=== PATIENT | female | born 1945 | race Two or more races ===

== ENCOUNTER 2023-02-01 23:49 | Emergency (ER) | payer MEDICARE, OTHER ==
[~2023-02-01] VITALS: Ht 154.9 cm; Wt 71.7 kg
--- NOTE | 2023-02-02 00:15 | NUR ---
BIB 889 FROM HOME FOR C/O LOWER BACK AND L FEMUR PAIN S/P FALL 2 DAYS AGO. +BRUISES ON POSTERIOR L THIGH. TESTED + FOR [employer] TODAY
[2023-02-02] MEDS ORDERED: CYCLOBENZAPRINE 10 MG TABLET ONE (00:46)
[2023-02-02] MEDS ORDERED: KETOROLAC TROMETHAMINE INJ 30 MG/ML VIAL ONE (00:46)
[2023-02-02] MEDS ORDERED: CYCLOBENZAPRINE 10 MG TABLET PO ONE (01:00)
[2023-02-02] MEDS ORDERED: KETOROLAC TROMETHAMINE INJ 60 MG/2 ML VIAL IM ONE (01:00)
--- NOTE | 2023-02-02 01:14 | NUR ---
LEFT FOR CT
[2023-02-02] MEDS ORDERED: KETO10TA2 PO (03:07)
[2023-02-02] MEDS ORDERED: OXYC-131 PO (03:07)
[2023-02-02] MEDS ORDERED: CYCL5TAB PO (03:07)
--- NOTE | 2023-02-02 03:38 | NUR ---
Patient discharged to home in stable condition. Written and verbal after care instructions given. Patient verbalizes understanding of instruction.
[2023-02-02 03:40] VITALS: BP 118/68
[2023-02-03] MEDS ORDERED: OXYC-128 PO (15:35)
== END 2023-02-02 03:40 | disposition home or self-care (01) ==
LOC: EDBD 23:54 → ER 23:54
DX: M25.552 Pain in left hip (principal); M54.50 Low back pain, unspecified; I10 Essential (primary) hypertension; E11.9 Type 2 diabetes mellitus without complications; Z60.2 Problems related to living alone; Z88.0 Allergy status to penicillin; W19.XXXA Unspecified fall, initial encounter; Y93.89 Activity, other specified; Y92.89 Other specified places as the place of occurrence of the external cause; Y99.8 Other external cause status
CPT/HCPCS: 99285; 72131; 96372; 73700; J1885

== ENCOUNTER 2023-05-12 04:48 | Emergency (ER) | payer MEDICARE, OTHER ==
[~2023-05-12] VITALS: Ht 154.9 cm; Wt 72.6 kg
[~2023-05-12 04:48] MED LIST: CYCL5TAB PO; KETO10TA2 PO; OXYC-128 PO
[2023-05-12 05:05] VITALS: TEMP 99.5
--- NOTE | 2023-05-12 05:09 | NUR ---
Ruben AOx4, able to express concerns. Patient states she has oral and sinus pain since 05/11/2023. Daughter at bedside, per pts request. Discussed plan of care, pt verbalized agreement. All safety precautions taken.
[2023-05-12] MEDS ORDERED: CLINDAMYCIN HCL 150 MG CAPSULE PO ONE (05:30)
[2023-05-12] MEDS ORDERED: HYDROCODONE/APAP 5/325MG TABLET PO ONE (05:30)
[2023-05-12] MEDS ORDERED: HYDR-3980 PO (05:30)
[2023-05-12] MEDS ORDERED: CLIN300C12 PO (05:30)
[2023-05-12] MEDS ORDERED: CLINDAMYCIN HCL 150 MG CAPSULE ONE (05:31)
[2023-05-12] MEDS ORDERED: HYDROCODONE/APAP 5/325MG TABLET ONE (05:31)
[2023-05-12 05:40] VITALS: BP 146/84
== END 2023-05-12 05:40 | disposition home or self-care (01) ==
LOC: ER 04:52
DX: K13.79 Other lesions of oral mucosa (principal); R22.0 Localized swelling, mass and lump, head; I10 Essential (primary) hypertension; E11.9 Type 2 diabetes mellitus without complications; Z60.2 Problems related to living alone; Z95.1 Presence of aortocoronary bypass graft; Z79.899 Other long term (current) drug therapy; Z88.0 Allergy status to penicillin

== ENCOUNTER 2024-04-24 00:47 | Emergency (ER) | payer MEDICARE, OTHER ==
[~2024-04-24] VITALS: Ht 157.5 cm; Wt 77.1 kg
[~2024-04-24 00:47] MED LIST changes: +CLIN300C12 PO; +HYDR-3980 PO
[2024-04-24] MEDS ORDERED: KETOROLAC TROMETHAMINE 15 MG/ML VIAL ONE (01:58)
[2024-04-24] MEDS: KETOROLAC TROMETHAMINE 15 MG/ML VIAL IM ONE (02:00)
[2024-04-24] MEDS ORDERED: CLONIDINE HCL 0.1 MG TABLET ONE (02:27)
[2024-04-24] MEDS: CLONIDINE HCL 0.1 MG TABLET PO ONE ×2 (02:30→03:48)
[2024-04-24] MEDS ORDERED: GABA-532 PO (05:17)
[2024-04-24 05:28] VITALS: BP 125/58; TEMP 98.2; O2SAT 97
== END 2024-04-24 05:29 | disposition home or self-care (01) ==
LOC: ER 00:49
DX: M54.50 Low back pain, unspecified (principal); M79.605 Pain in left leg; M79.604 Pain in right leg; I10 Essential (primary) hypertension; E11.9 Type 2 diabetes mellitus without complications; Z88.0 Allergy status to penicillin; Z60.2 Problems related to living alone
CPT/HCPCS: 99285; 93970; 72131; 96372; J1885

== ENCOUNTER 2024-11-21 10:27 | Emergency (ER) | payer MEDICARE, OTHER ==
[~2024-11-21] VITALS: Ht 152.4 cm; Wt 66.2 kg
[~2024-11-21 10:27] MED LIST changes: +GABA-532 PO
[2024-11-21] MEDS ORDERED: ASPIRIN 325 MG TABLET ONE (10:59)
[2024-11-21 11:11] LABS: BASOPHILS # (AUTO) 0.1 K/uL (0.0-0.2); EOSINOPHILS # (AUTO) 0.1 K/uL (0.0-0.7); EOSINOPHILS % (AUTO) 1.1 % (0.0-6.0); HEMATOCRIT 35 % (33-45); HEMOGLOBIN 11.5 g/dL (11.5-14.8); LYMPHOCYTES # (AUTO) 2.1 K/uL (0.8-4.8); LYMPHOCYTES % (AUTO) 23.4 % (20.0-44.0); MEAN CORPUSCULAR HEMOGLOBIN 30 PG (26.0-33.0); MEAN CORPUSCULAR HGB CONC 33 g/dl (31.0-36.0); MEAN CORPUSCULAR VOLUME 91 fL (82-100); MONOCYTES # (AUTO) 0.5 K/uL (0.1-1.30); MONOCYTES % (AUTO) 5.9 % (2.0-12.0); NEUTROPHILS # (AUTO) 6.3 K/uL (1.8-8.9); NEUTROPHILS % (AUTO) 68.6 % (43.0-81.0); PLATELET COUNT (AUTO) 257 K/uL (150-450); RED BLOOD CELL COUNT(AUTO) 3.84 MIL/uL (4.0-5.2); RED CELL DISTRIBUTION WIDTH 13.9 % (11.5-15.0); WHITE BLOOD COUNT (AUTO) 9.1 K/uL (4.3-11.0)
[2024-11-21] MEDS: ASPIRIN 325 MG TABLET PO ONE (11:18)
[2024-11-21 11:44] LABS: CALCIUM, SERUM 8.7 mg/dL (8.5-10.1); CARBON DIOXIDE 24 mmol/L (21-32); CHLORIDE 107 mmol/L (98-107); GLUCOSE 115 mg/dL (74-106); POTASSIUM 4.9 mmol/L (3.5-5.1); SODIUM SERUM 140 mmol/L (136-145); UREA NITROGEN, BLOOD 13 mg/dL (7-18)
[2024-11-21 12:07] LABS: ALANINE AMINOTRANSFERASE 65 U/L (12-78); ALBUMIN 3.4 g/dL (3.4-5.0); ALKALINE PHOSPHATASE 83 U/L (46-116); ASPARTATE AMINOTRANSFERASE 44 U/L (15-37); BILIRUBIN,DIRECT 0.1 mg/dL (0.0-0.2); BILIRUBIN,TOTAL 0.3 mg/dL (0.2-1.0); NT-PRO BNP 1604 pg/mL (0-125); TOTAL PROTEIN, SERUM 7.3 g/dL (6.4-8.2)
[2024-11-21 13:31] VITALS: BP 148/67; TEMP 98.2; O2SAT 100
== END 2024-11-21 13:35 | disposition left against medical advice (07) ==
LOC: ER 10:30
DX: R07.9 Chest pain, unspecified (principal); I10 Essential (primary) hypertension; I25.10 Atherosclerotic heart disease of native coronary artery without angina pectoris; I49.1 Atrial premature depolarization; Z86.718 Personal history of other venous thrombosis and embolism; Z88.0 Allergy status to penicillin; Z95.5 Presence of coronary angioplasty implant and graft
CPT/HCPCS: 36415; 71045-TC; 80048-TC; 80076-TC; 83880; 84484-TC; 85025-TC

== ENCOUNTER 2025-03-10 14:17 | Inpatient (IN) | payer MEDICARE, OTHER ==
[~2025-03-10] VITALS: Ht 152.4 cm; Wt 66.7 kg
[2025-03-10 14:27] VITALS: TEMP 98.1
[2025-03-10 14:53] LABS: BASOPHILS # (AUTO) 0.1 K/uL (0.0-0.2); BASOPHILS % (AUTO) 0.8 % (0.0-2.0); EOSINOPHILS # (AUTO) 0.2 K/uL (0.0-0.7); EOSINOPHILS % (AUTO) 1.6 % (0.0-6.0); HEMATOCRIT 37 % (33-45); HEMOGLOBIN 12.3 g/dL (11.5-14.8); LYMPHOCYTES # (AUTO) 2.6 K/uL (0.8-4.8); LYMPHOCYTES % (AUTO) 27.1 % (20.0-44.0); MEAN CORPUSCULAR HEMOGLOBIN 30 PG (26.0-33.0); MEAN CORPUSCULAR HGB CONC 34 g/dl (31.0-36.0); MEAN CORPUSCULAR VOLUME 89 fL (82-100); MONOCYTES # (AUTO) 0.7 K/uL (0.1-1.30); MONOCYTES % (AUTO) 6.8 % (2.0-12.0); NEUTROPHILS # (AUTO) 6.1 K/uL (1.8-8.9); NEUTROPHILS % (AUTO) 63.7 % (43.0-81.0); PLATELET COUNT (AUTO) 256 K/uL (150-450); RED BLOOD CELL COUNT(AUTO) 4.14 MIL/uL (4.0-5.2); RED CELL DISTRIBUTION WIDTH 14.1 % (11.5-15.0); WHITE BLOOD COUNT (AUTO) 9.6 K/uL (4.3-11.0)
[2025-03-10 15:06] LABS: CALCIUM, SERUM 9.5 mg/dL (8.5-10.1); CARBON DIOXIDE 25 mmol/L (21-32); CHLORIDE 104 mmol/L (98-107); GLUCOSE 98 mg/dL (74-106); POTASSIUM 5.1 mmol/L (3.5-5.1); SODIUM SERUM 140 mmol/L (136-145); UREA NITROGEN, BLOOD 16 mg/dL (7-18)
[2025-03-10] MEDS ORDERED: ACETAMINOPHEN ES 500 MG TABLET ONE (15:12)
[2025-03-10] MEDS: ACETAMINOPHEN ES 500 MG TABLET PO ONE (15:14)
[2025-03-10 15:17] LABS: ALANINE AMINOTRANSFERASE 18 U/L (12-78); ALBUMIN 3.8 g/dL (3.4-5.0); ALKALINE PHOSPHATASE 87 U/L (46-116); ASPARTATE AMINOTRANSFERASE 20 U/L (15-37); BILIRUBIN,DIRECT 0.1 mg/dL (0.0-0.2); BILIRUBIN,TOTAL 0.5 mg/dL (0.2-1.0); NT-PRO BNP 743 pg/mL (0-125); TOTAL PROTEIN, SERUM 7.3 g/dL (6.4-8.2)
[2025-03-10] MEDS ORDERED: CARV25TA2 PO (16:26)
[2025-03-10] MEDS ORDERED: ASPI-1420 PO (16:26)
[2025-03-10] MEDS ORDERED: BENA20TA9 PO (16:26)
[2025-03-10] MEDS ORDERED: ESOM40CA PO (16:26)
[2025-03-10] MEDS ORDERED: LORA10TA7 PO (16:26)
[2025-03-10] MEDS ORDERED: GABA-532 PO (16:26)
[2025-03-10] MEDS ORDERED: LINA1TAB7 PO (16:26)
[2025-03-10] MEDS ORDERED: DICL100G26 TP (16:26)
[2025-03-10] MEDS ORDERED: TICA60TA PO (16:26)
[2025-03-10] MEDS ORDERED: ATOR80TA PO (16:26)
[2025-03-10] MEDS ORDERED: TRAM50TA2 PO (16:26)
[2025-03-10] MEDS ORDERED: CYCL30DR EACHEYE (16:26)
[2025-03-10] MEDS ORDERED: MORPHINE SULFATE INJ 2 MG/ML DISP.SYRIN IV PRN (17:00)
[2025-03-10] MEDS ORDERED: hydrALAZINE HCL IV 20 MG VIAL IV PRN (17:00)
[2025-03-10] MEDS ORDERED: ACETAMINOPHEN 325 MG TABLET PO PRN (17:00)
[2025-03-10] MEDS ORDERED: Medication Not On Formulary EA (Ticagrelor (Brilinta) 60 MG) PO SCH (17:00)
[2025-03-10] MEDS ORDERED: DEXTROSE 50%-WATER 50 ML DISP.SYRIN IV PRN (17:00)
[2025-03-10] MEDS ORDERED: INSULIN REGULAR, HUMAN 100 UNIT/ML 3 ML VIAL SQ PRN (17:00)
[2025-03-10] MEDS ORDERED: ONDANSETRON HCL/PF 4 MG/2 ML VIAL IVP PRN (17:00)
[2025-03-10] MEDS: BLOOD SUGAR DIAGNOSTIC 1 EACH STRIP IN SCH (17:57)
[2025-03-10 19:26] VITALS: BP 110/65; O2SAT 96
[2025-03-10] MEDS ORDERED: HEPARIN SODIUM, PORCINE 5000 UNITS/1 ML VIAL SQ SCH (21:00)
[2025-03-10] MEDS ORDERED: GABAPENTIN 100 MG CAPSULE PO SCH (22:00)
[2025-03-11] MEDS ORDERED: LISINOPRIL (20MG) 20 MG TABLET PO SCH (09:00)
[2025-03-11] MEDS ORDERED: CARVEDILOL 12.5 MG TABLET PO SCH (09:00)
[2025-03-11] MEDS ORDERED: LORATADINE 10 MG TABLET PO SCH (09:00)
[2025-03-11] MEDS ORDERED: ATORVASTATIN 40 MG TABLET PO SCH (09:00)
[2025-03-11] MEDS ORDERED: ASPIRIN EC 81 MG TABLET.DR PO SCH (09:00)
== END 2025-03-10 19:30 | disposition left against medical advice (07) | DRG 311 ==
LOC: ER 14:25 → TELE 18:52
PROVIDERS: ADMIT Internal Medicine; ATTEND Internal Medicine
DX: I24.9 Acute ischemic heart disease, unspecified (principal); I25.10 Atherosclerotic heart disease of native coronary artery without angina pectoris; I10 Essential (primary) hypertension; Z95.5 Presence of coronary angioplasty implant and graft; Z53.29 Procedure and treatment not carried out because of patient's decision for other reasons; Z79.82 Long term (current) use of aspirin; Z79.899 Other long term (current) drug therapy; Z79.84 Long term (current) use of oral hypoglycemic drugs; E11.9 Type 2 diabetes mellitus without complications; Z86.718 Personal history of other venous thrombosis and embolism; Z88.0 Allergy status to penicillin
CPT/HCPCS: 36415; 71045-TC; 80048-TC; 80076-TC; 82962-TC; 83880; 84484-TC; 85025-TC; G0378; J1815